=== PATIENT | female | born 1960 | race African-American/Black ===

== ENCOUNTER 2017-12-29 09:19 | Day surgery (SDC) | payer MEDICAID ==
[~2017-12-29] VITALS: Ht 157.5 cm; Wt 103.4 kg
[2017-12-29] MEDS ORDERED: LACTATED RINGERS 1,000 ML IV SCH (10:00)
[2017-12-29 10:41] LABS: UCG SCREEN NEGATIVE
[2017-12-29] MEDS ORDERED: SIMETHICONE 40 MG/0.6 ML 30ML ONE (10:41)
[2017-12-29] MEDS ORDERED: CETI1TAB PO (11:36)
[2017-12-29] MEDS ORDERED: DOCU-286 PO (11:36)
[2017-12-29] MEDS ORDERED: FERR324T4 PO (11:36)
[2017-12-29] MEDS ORDERED: LIDOCAINE HCL/PF 1% 10 MG/ML 5ML VIAL ONE (12:27)
[2017-12-29] MEDS ORDERED: ONDANSETRON HCL 4MG/2ML VIAL ONE (12:27)
[2017-12-29] MEDS ORDERED: PROPOFOL 200MG/20ML VIAL IV ONE ×2 (12:27→12:35)
[2017-12-29] MEDS ORDERED: MIDAZOLAM HCL 2 MG/2 ML VIAL ONE (12:27)
[2017-12-29 15:55] LABS: BASOPHILS % 0.6 % (0.0-2.0); EOSINOPHILS % 2.1 % (0.0-5.0); HEMATOCRIT. 33.8 % (36.0-48.0); HEMOGLOBIN. 10.8 g/dL (12.0-16.0); LYMPHOCYTES % 30.1 % (20.0-50.0); MEAN CORPUSCULAR HEMOGLOBIN 24.4 pg (28.0-32.0); MEAN CORPUSCULAR VOLUME 76.7 fL (81.0-99.0); MEAN PLATELET VOLUME 8.6 fl (7.4-10.4); MONOCYTES % 5.7 % (2.0-8.0); NEUTROPHILS % 61.5 % (40.0-76.0); PLATELET 291 x1000/uL (130-400); RED BLOOD CELL COUNT 4.41 mill/uL (4.2-5.4); RED CELL DISTRIBUTION WIDTH 17.8 % (11.6-14.6)
[2017-12-29 15:57] LABS: TOTAL IRON BINDING CAPACITY 466 ug/dL (250-450)
[2018-01-01 14:20] LABS: HGB A 97.9 % (96.4-98.8); HGB A2 2.1 % (1.8-3.2); HGB SOLUBILITY Negative (Negative)
== END 2017-12-29 16:00 | disposition home or self-care (01) ==
LOC: OR 09:19
PROVIDERS: ATTEND Internal Medicine Gastroenterology
DX: K29.50 Unspecified chronic gastritis without bleeding (principal); K20.9 Esophagitis, unspecified; K31.89 Other diseases of stomach and duodenum; Z79.899 Other long term (current) drug therapy; Z88.0 Allergy status to penicillin; Z91.010 Allergy to peanuts; Z91.018 Allergy to other foods
CPT/HCPCS: 36415; 43239; 81025; 83021; 83540; 83550; 85025; 85651; 85660; 88305; J2250; J2405; J3490; J7120; J2704